=== PATIENT | male | born 1970 | race Caucasian/White ===

== ENCOUNTER 2020-10-05 17:38 | Emergency (ER) | payer SELFPAY ==
[~2020-10-05] VITALS: Ht 170.2 cm; Wt 76.0 kg
[~2020-10-05 17:38] MED LIST: UNK MEDS
[2020-10-05] MEDS ORDERED: LIDOCAINE 5% PATCH TOP SCH (18:45)
[2020-10-05] MEDS ORDERED: KETOROLAC 60MG/2ML VIAL IM ONE (18:45)
[2020-10-05] MEDS ORDERED: ACETAMINOPHEN 325MG TABLET PO ONE (18:45)
[2020-10-05] MEDS: LIDOCAINE 5% PATCH TOP NR ×2 (19:17→19:26)
[2020-10-05 19:26] VITALS: BP 155/85
[2020-10-05] MEDS ORDERED: IBUP-2029 MT (20:19)
== END 2020-10-05 20:30 | disposition home or self-care (01) ==
LOC: ER 17:38
DX: R07.89 Other chest pain (principal); I10 Essential (primary) hypertension; E11.9 Type 2 diabetes mellitus without complications; F12.10 Cannabis abuse, uncomplicated; F17.210 Nicotine dependence, cigarettes, uncomplicated; Y04.0XXA Assault by unarmed brawl or fight, initial encounter; Y93.89 Activity, other specified; Y92.89 Other specified places as the place of occurrence of the external cause
CPT/HCPCS: 71101; 96372; 99283; J1885